=== PATIENT | female | born 1955 | race Caucasian/White ===

== ENCOUNTER 2020-02-07 01:13 | Inpatient (IN) | payer OTHER ==
[~2020-02-07] VITALS: Ht 152.4 cm; Wt 80.5 kg
[2020-02-07] MEDS ORDERED: NORVASC 2.5 MG2.5 M1 PO (01:39)
[2020-02-07] MEDS ORDERED: LIPITOR80 MG PO (01:40)
[2020-02-07] MEDS ORDERED: ABILIFY10 MG PO (01:40)
[2020-02-07] MEDS ORDERED: ASA81BEC PO (01:40)
[2020-02-07] MEDS ORDERED: LISINOPRIL40 MG PO (01:41)
[2020-02-07] MEDS ORDERED: CELEXA 10 MG TA10 M1 PO (01:41)
[2020-02-07] MEDS ORDERED: SYMBICORT160 MCG/4. INH (01:43)
[2020-02-07] MEDS ORDERED: CARVEDILOL12.5 MG PO (01:44)
[2020-02-07] MEDS ORDERED: VENTOLIN HFA INH8 GM INH (01:45)
[2020-02-07 03:30] VITALS: BP 154/87
--- NOTE | 2020-02-07 04:23 | NUR ---
PATIENT ARRIVED BY AMBULANCE STRETCHER TO [facility] UNIT AT 0310. PATIENT WAS A/O X2-3 AND FORGETFUL AND CONFUSED FROM ALL TRANSFERS FROM FACILITIES TODAY. PATIENT RECENTLY BEGAN RESIDING AT [facility] ASSISTED LIVING APARTMENT ON , 2 WEEKS AGO. PHI RECORDS RECEIVED FROM TRANSPORT AMBULANCE. PATIENT WAS BROUGHT TO ROOM AND VITAL SIGNS WERE OBTAINED. VSS AT 154/87, 97.7, 81P,18R, 02% 95 RA. PT IS BLACK FEMALE AGE 64. SHE IS AWARE THAT SHE IS IN THE HOSPITAL BUT CONFUSED ON WHICH ONE SHE IS IN. SHE DID ASK, "WHY DO THEY KEEP MOVING ME TO DIFFERENT PLACES?" WHEN ASKED IF SHE COULD TELL ME WHY SHE FELT SHE NEEDED TO COME TO THE HOSPITAL, SHE BEGAN TO SOB WITH NOSE RUNNING AND SOME DROOL. "SHE STATES, "I JUST DON'T KNOW! ALL I KNOW IS THAT I'M ALL ALONE! I DON'T HAVE ANY KIDS AND I'M BY MYSELF." SHE DID PROJECT THAT SHE HAS A SISTER THAT LIVES IN THE AREA THAT SHE WISHES TO CALL IN THE MORNING. SHE IS CONFUSED ABOUT WHERE SHE IS LIVING AND CAN'T RECALL THE NAME. WHEN ASKING HER ABOUT HER COMMENTS THAT OTHERS REPORTED SAYING THAT SHE FELT LIKE SHE WAS HAVING A NERVOUS BREAKDOWN AND THAT SHE WAS THINKING ABOUT KILLING HERSELF, SHE CRIED HARDER AND SAID SHE DOESN'T REMEMBER ANY OF THIS. PATIENT APPEARS VERY SAD, HOPELESS, SCARED, ANXIOUS, CONFUSED, LOST. SHE IS COOPERATIVE WITH CARES AND APPRECIATIVE. SHE ASKED FOR SOMETHING TO EAT AND SAID SHE HAD NOT EATEN FOR A LONG TIME. AFTER PHYSICAL ASSESSMENT PATIENT LEAD TO THE DINING ROOM WHERE SHE DID HAVE A BOWL OF CEREAL AND MILK. TRAZADONE 50MG PO GIVEN AND PATIENT WENT BACK TO BED AFTER EATING. PATIENT STATES SHE HAS NOT HAD A BM TODAY AND NO RECALL OF LAST ONE. [facility] DID NOT KNOW EITHER. PATIENT DENIES PAIN. HER SKIN IS INTACT WITH HEAVY CALLOUSING OF TOES AND HEELS BILATERALLY AND TOENAILS NEED TRIMMED. BOWEL SOUNDS ACTIVE IN ALL 4 QUADS. ABDOMEN SOFT. LUNGS CTA BILATERALLY WITH OCCASIONAL COARSENESS THAT CLEARS WITH COUGH. COVID-19 ASSESSMENT QUESTIONS AND ASSESSMENT OF PATIENT DONE IN [facility] PER THIS NURSE REQUEST AND PROTOCOL. SPOKE WITH DAMIEN MENARD AT [facility] REGARDING THIS. PATIENT DID PRESENT TO ER WITH C/O RUNNY NOSE AND COUGH BUT DOES NOT MEET THE CRITERIA FOR THE QUESTIONS AND HAS NOT RAN A FEVER AND NO BODY ACHES OR POSITIVE CONTACT WITH CONFIRMED CASES. PATIENT STANDS 5 FT TALL AND WEIGHS 174.2 LBS PER BED SCALES. SHE AMBULATES WITH STEADY GAIT WITH WALKER. HEART SOUNDS ARE REGULAR WITH BOUNDING RHYTHM. NO WOUNDS OR PRESSURE SORES NOTED. PATIENT DOES WEAR DISPOSABLE BRIEFS BUT IS CONTINENT OF BOWEL AND BLADDER PER REPORT. PATIENT DID VOID CLEAR YELLOW URINE ONCE SHE WAS HERE BEFORE SHE WENT TO BED. CONSENT FORMS WERE GONE OVER AND SIGNED BY PATIENT A VOLUNTARY ADMIT. NO DPOA AT THIS TIME EXCEPT A FINANCIAL POA ADVISOR ON CHART. FALL EDUCATION AND PATIENT BILL OF RIGHTS EDUCATION DONE. PATIENT CHANGED INTO [facility] GOWN WITHOUT STRINGS AND NONSLIP SOCKS ON FEET. INVENTORY OF ITEMS DONE AND PLACED IN LOCKER. SHE ONLY HAS EYEGLASSES AN AID FOR SEEING AND THEY ARE IN HER LOCKER AT THIS TIME BECAUSE SHE IS AFRAID OF LOSING HER BELONGINGS. PATIENT IS NOT HALLUCINATING AT THIS TIME BUT DID BY EARLIER REPORTS STATING THAT SHE SAW AND SPOKE TO HER THAT TOLD HER TO GO GET HELP. NO SI AT THIS TIME. BED IN LOW POSITION. WALKER AT BEDSIDE. PATIENT DIAGNOSIS ON ADMIT OF SI, DEPRESSION. SHE HAS HISTORY OF PSYCHOSIS AND ANXIETY. SHE HAS BEEN INPATIENT AT [facility] TWICE IN THE LAST MONTH. SHE RECENTLY GOT ESTABLISHED AT [facility] FOR MED MANAGEMENT. PATIENT ALSO HAS CONTINUED HISTORY OF AV HALLUCINATIONS. MEDICAL HISTORY INCLUDES, CURRENT CIGARETTE SMOKER, HTN, HLD, ASTHMA/COPD, DM2. PATIENT WAS EASILY CONSOLED AND 1:1 VERBALIZATION AND COMFORT GIVEN. PATIENT IS SLEEPING. NO COUGH NOTED SINCE STOPPED CRYING. BED IN LOW POSITION AND ROUTINE ROUNDING FOR SAFETY BEING DONE. CAN ASSESS WHEN SHE AWAKES, NEED FOR NICODERM PATCH IF SHE DESIRES. WILL CONTINUE TO MONITOR. ORDERS RECEIVED AND DR [facility] NOTIFIED OF ADMIT.
[2020-02-07 08:55] VITALS: BP 152/73
[2020-02-07 13:05] LABS: HEMOGLOBIN 12.1 gm/dL (12.0-15.0); MCH 29.5 pg (26.0-34.0); MCHC 32.8 g/dL (28.0-37.0); MCV 89.9 fL (80.0-100.0); RBC 4.11 mil/uL (4.20-5.00); RDW 17.4 % (10.5-14.5)
[2020-02-07 13:17] LABS: CALCIUM 10.4 mg/dL (8.5-10.1); CREATININE 0.8 mg/dL (0.6-1.0); POTASSIUM 3.8 mmol/L (3.5-5.1)
--- NOTE | 2020-02-07 14:01 | NUR ---
GEODON 20MG GIVEN FOR AGRESSIVE BEHAVIOR AND COMBATIVE WITH STAFF PER ORDER. PATIENT NOTED SWINGING ARM AT [facility] Onofre REC THERAPIST. CAMI WAS ABLE TO BLOCK THE SWING AND ONLY OBTAINED BLOW TO HER HAND. PATIENT ESCORTED TO SECLUSION BY DR KHANNA. PLASTIC MOLDER DID NOT WITTNES INCIDENT PRIOR TO THE SWING. ORDER FOR ONE ON ONE RECIEVED.
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
[2020-02-07 14:29] VITALS: BP 152/73
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
[2020-02-07 19:08] VITALS: BP 151/65
--- NOTE | 2020-02-07 23:31 | NUR ---
Assumed care on 02/07/20 @ 1900, patient noted to be in bed by 1999, awakened to voice and cooperated with assessment. HRRR, lungs fine crackles noted, abd normoactive x 4 q. afebrile @ 97.8F 95% SPO2. Took HS meds whole with water. Tremors noted to hands. Bed in low position, bed alarm set, will continue to monitor for patient safety. Continues to lie in bed with eyes closed and respirations even and unlabored.
[2020-02-08 00:49] VITALS: BP 151/65
[2020-02-08 09:22] VITALS: BP 113/74
--- NOTE | 2020-02-08 10:39 | NUR ---
02/07/20 LASHONDA spoke with Marilyn VALLADARES and Dr santoyo enacted it with an order. Pt was at [facility] and was discharge to [facility] ADRIANNA and BLAINE belives this pt needs LTC memory care. LASHONDA completed the intake assessment and TP.
--- NOTE | 2020-02-08 13:35 | NUR ---
complient with taking scheduled am medications with exception OF NICOTINE PATCH STATING "I DON'T NEED THAT" DURING AM ASSESSMENT IS NOTED TO HAVE ACTIVE BS X4-STATES HAD LAST BM "YESTERDAY I THINK" DENIES S/O PAIN AND DISCOMFORT WHEN QUUESTIONED. LUNG SOUNDS SLIGHTLY DIMINISHED 9IN BASES-BUT AFEBRILE-NO COUGH OR NASAL CONGESTION NOTED OR REPORTED. PT DENIES SOB,AMBULATORY WITH USE OF ROLLER WALKER-GAIT STEADY WITH USE OF ASSISITVE DEVICE. LATER IN SHIFT-APPROX 1100 REPORTED TO MD SHE WAS HAVING SEVERE LEFT SHOULDER PAIN-LIDODERM PATCH ALLPIED PER MD ORDER-VOLTERAN GEL APPLIED AT 1200 TO LEFT SIDE OF NECK AND UPPER SHOULDER. NO REDNESS,SWELLING ETC NOTED UPON EXAM, WHEN ASKED IF THIS HAD BEGAN AFTER PHYSICAL ALTERCATION WITH STAFF YESTERDAY STATES "NO I;'VE HAD IT FOR MONTHS" AT APPROX. 1245 IMMEDIATLY AFTER XRAY LEFT HER BED AND SAT DOWN IN HALLWAY-LOUDLY,DRAMATIC CRYING STATING IN SEVERE PAIN MUSCLES IN NECK "TIGHT" GODD CSM TO LEFT ARM,FINGERS TO LEFT HAND WARM,FULL ROM. WILL CONTINUE TO MONITOR
--- NOTE | 2020-02-08 14:46 | NUR ---
Spoke with admissions at [facility] and they are an RCF and will not accept this pt back. They feel they were mislead in the original admission and the DPOA is not forthright. SW asked if they would keep this pt beloingings until alternate placement is established. SW will send referrals as soon as there are a few days without behaviors.
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
--- NOTE | 2020-02-09 03:28 | NUR ---
Assumed care on 01/30/20 @ 1900, sitting on a couch in the day room socializing with peers and watching tv. A&Ox 2 oriented to person and time only. Confused and forgetful, however pleasant affect noted. c/o pain in L Shoulder and R eye. Slight puffiness noted to R eye, Tylenol 650 provided for pain to L shoulder and R eye. Diclofenac applied to shoulder when Lidocaine patch removed. Seen by neurologist @ 2100, new meds ordered to begin in the a.m. Cooperated with assessment, Hrrr, Lungs fine crackles auscultated, cough noted, lung sounds clear after cough. ABD sounds noted, reports bm today on 02/07. Incontinent of bladder, wears a brief. In bed asleep throughout the night as of this writing, bed in low position. Will continue to monitor q 12 minutes for patient safety.
[2020-02-09 05:16] VITALS: BP 118/63
--- NOTE | 2020-02-09 06:07 | NUR ---
slept 7.6 hours overnight
[2020-02-09 07:15] VITALS: BP 145/75
--- NOTE | 2020-02-09 15:14 | NUR ---
Sw met with pt and discussed her d/c plans. Pt is aware thet she " acted the fool " and cannot go backt o her NH. Pt is willign to try and live in another NH and is grateful for assistane . Did not ahve group today due to COVID 19 restricitons.
--- NOTE | 2020-02-09 15:36 | NUR ---
Maryellen sent referral to [facility]
[2020-02-09 19:25] VITALS: BP 157/73
--- NOTE | 2020-02-10 00:34 | NUR ---
Assumed care of patient this pm shift. Patient sitting in the mileu with other peers. Patient ambulates with a walker but requested to use a wheel chair as her back was hurting. Patients affect blunted. Patients memory is poor at this time. Patient states that her right eye is hurting. Patient given tylenol for the pain. Patient denies hi/si. Patients assessment shows course rhonchi bilaterally in the upper apices. RT called to give patient a breathing treatment. Patients bowel sounds active. S1 S2 heard with auscultation. Patient in bed sleeping at this time. We will continue to monitor.
[2020-02-10 07:11] VITALS: BP 148/75
--- NOTE | 2020-02-10 09:30 | NUR ---
POST January. CHARTING: PATIENT COMPLAINED OF RIGHT EYE PAIN YESTERDAY. MOBIC HELPS WITH DISCOMFORT AT TIMES - WAS CALM AND COOPERATIVE. NO AGITATION OR AGGRESSIVE BEHAVIOR. MEDICATION COMPLIANT. DENIES ANY S/I OR HALLUCINATIONS WHEN QUESTIONED - OBSERVED NO INTERNAL STIMULI - AMBULATES WITH WALKER.
--- NOTE | 2020-02-10 14:28 | NUR ---
LASHONDA did a check in with pt instead of group due to COVID-19 guidelines. Pt talked to LASHONDA about Lavon Lynen and his evelia COVID-19; it was on the news. She initially thought they were saying the mejía Amish. When LASHONDA informed her that he a few years ago, she responded with a surprise expression; she said she did not know he . She also mentioned she was in pain. LASHONDA provided this update to her nurse. LASHONDA team will continue to follow pt during her stay on this unit.
[2020-02-10 16:26] LABS: ABSOLUTE NEUTROPHILS 2.2 thou/uL (1.4-8.2); BASOPHILS 0.9 % (0.0-2.0); EOSINOPHILS 0.3 % (0.0-3.0); HEMATOCRIT 33.4 % (37.0-47.0); HEMOGLOBIN 11.1 gm/dL (12.0-15.0); LYMPHOCYTES 49.1 % (24.0-44.0); MCH 29.8 pg (26.0-34.0); MCHC 33.2 g/dL (28.0-37.0); MCV 89.7 fL (80.0-100.0); MONOCYTES 6.9 % (1.0-8.0); PLATELET COUNT 269 thou/uL (150-400); POLYS 42.8 % (36.0-66.0); RBC 3.72 mil/uL (4.20-5.00); RDW 17.2 % (10.5-14.5); WBC 5.1 thou/uL (4.0-11.0)
[2020-02-10 16:34] LABS: ANION GAP 8 mmol/L (7-16); BUN 18 mg/dL (7-18); CALCIUM 9.8 mg/dL (8.5-10.1); CHLORIDE 101 mmol/L (98-107); CO2 24 mmol/L (21-32); CREATININE 0.7 mg/dL (0.6-1.0); GLUCOSE 110 mg/dL (74-106); POTASSIUM 4.2 mmol/L (3.5-5.1); SODIUM 133 mmol/L (136-145)
[2020-02-10 16:44] LABS: ALBUMIN 3.2 g/dL (3.4-5.0); MAGNESIUM 1.6 mg/dL (1.8-2.4); SGOT 13 U/L (15-37); SGPT 5 U/L (30-65); TOTAL BILIRUBIN 0.5 mg/dL (<0.1-1.0); TOTAL PROTEIN 6.8 g/dL (6.4-8.2); TROPONIN-I <0.06 ng/mL (<0.06)
--- NOTE | 2020-02-10 18:42 | NUR ---
PATIENT HAS BEEN UP ON UNIT - STATES EYES HURT. HAS ASKED FOR MULTIPLE PAIN MEDICATIONS. GOOD APPETITE. LATER IN AFTERNOON FELT DIZZINESS - DR. VALENCIA ASSESSED AND PUT ORDERS IN EKG AND LABS STAT. THEY WERE DONE AND UNREMARKABLE. WAS CONCERNED WITH HER DIZZINESS. ALSO HAS BEEN ASKING FOR PAIN MEDICATIONS.
[2020-02-10 19:32] VITALS: BP 155/78
[2020-02-10 21:13] LABS: TSH 0.9 uIU/mL (0.358-3.740)
--- NOTE | 2020-02-10 21:30 | NUR ---
Assumed care on 02/10/20 @ 1900, sitting in mileu on the couch socializing with peers. Cooperaed with assessment and medicaiton. Denies SI, HI and Hallucinations. Denies depression and anxiety. Will continue to monitor for patient safety.
--- NOTE | 2020-02-10 23:59 | NUR ---
In bed eyes closed respirations even and unlabored. Prefers HOB @ 30% angle. Lodocain patch removed and Voltarin gel applied to L shoulder. Bed in low position, will continue to monitor q 12 minutes for patient safety.
[2020-02-11 03:06] VITALS: BP 155/78
[2020-02-11 08:00] VITALS: BP 150/71
--- NOTE | 2020-02-11 09:58 | EKG ---
[facility] [place] [address] ELECTROCARDIOGRAM REPORT Name: STEPHANY RIVERA Room #: 52[facility] ADM IN M.R.#: [id number] Admission: 02/07/20 Attend Phys: Fan Parikh DO Discharge: Date of : 53 Report #: [id number] THIS REPORT FOR: cc: NO FAMILY PHYSICIAN or PCP NO FAMILY PHYSICIAN or PCP Kwaku Tineo MD ~ THIS REPORT FOR: //name// [facility] Test Date: 2020-02-10 Test Time: 16:36:59 Pat Name: STEPHANY RIVERA Department: Room: [facility] A Gender: F Mailroom Personnel: Brent VIRAMONTES : 1955 Requested By: Maryanne Crawford Order Number: [id number] MD: Kwaku Tineo Measurements Intervals Vidal Rate: 69 P: 60 [place]: 180 QRS: 16 QRSD: 95 T: 67 QT: 387 QTc: 415 Interpretive Statements Sinus rhythm Nonspecific ST segment abnormalities No previous ECG available for comparison Electronically Signed On 02-11-2020 9:57:35 CDT by Kwaku Tineo [email or web address] <ELECTRONICALLY SIGNED> By: Kwaku Tineo MD 02/11/20 0957 D: [id number] Kwaku Tineo MD /OLU
--- NOTE | 2020-02-11 10:00 | EKG ---
[facility] [place] [address] ELECTROCARDIOGRAM REPORT Name: STEPHANY RIVERA Room #: 52[facility] ADM IN M.R.#: [id number] Admission: 02/07/20 Attend Phys: Fan Parikh DO Discharge: Date of : 53 Report #: [id number] THIS REPORT FOR: cc: NO FAMILY PHYSICIAN or PCP NO FAMILY PHYSICIAN or PCP Kwaku Tineo MD ~ THIS REPORT FOR: //name// [facility] Test Date: 2020-02-10 Test Time: 18:17:12 Pat Name: STEPHANY RIVERA Department: Room: [facility] A Gender: F Gin Feeder: Brent VIRAMONTES : 1955 Requested By: Maryanne Crawford Order Number: [id number] MD: Kwaku Tineo Measurements Intervals [place] Rate: 69 P: 57 IA: 183 QRS: 27 QRSD: 99 T: 67 QT: 394 QTc: 422 Interpretive Statements Sinus rhythm No previous ECG available for comparison Electronically Signed On 02-11-2020 9:58:54 CDT by Kwaku Tineo [email or web address] <ELECTRONICALLY SIGNED> By: Kwaku Tineo MD 02/11/20 0958 1817 16 MD OMAR Brooks
[2020-02-11 12:48] LABS: URINE BILIRUBIN NEGATIVE (Negative); URINE BLOOD NEGATIVE (Negative); URINE CLARITY CLEAR; URINE COLOR YELLOW; URINE GLUCOSE-RANDOM* NEGATIVE (Negative); URINE KETONES NEGATIVE (Negative); URINE LEUKOCYTES-REFLEX NEGATIVE (Negative); URINE NITRITE-REFLEX NEGATIVE (Negative); URINE PROTEIN (DIPSTICK) 2+ (Negative); URINE SPECIFIC GRAVITY >= 1.030 (1.005-1.035); URINE UROBILINOGEN 0.2 E.U./dl (0.2-1.0)
[2020-02-11 13:03] LABS: CASTS None Seen /LPF (None Seen); SQUAMOUS >10 Many /LPF (0-3)
[2020-02-11 13:04] LABS: CRYSTALS None Seen /LPF (None Seen); URINE RBC None Seen /HPF (0-2); URINE WBC-REFLEX 0-5 Rare /HPF (0-5)
--- NOTE | 2020-02-11 14:11 | NUR ---
ASSUMED CARE OF PATIENT AT 19:30 - OUT ON UNIT. SOCIAL WITH PEERS. DENIES ANY S/I OR H/I - STATES SHOULDER AND EYE PAIN MODERATELY BETTER. APPETITE GOOD - DID NOT PARTICIPATE IN MORNING GROUP - MANUVERS AROUND UNIT INDEPENDENTLY - ENCOURAGED TO USE HER WALKER AT ALL TIMES FOR BALANCE AND SAFETY. FORGETFUL- DID NOT REMEMBER STAFF HAD APPLIED LIDOCAINE AND QUESTIONED NOT RECEIVING MORNING MEDICATIONS.
[2020-02-11 19:35] VITALS: BP 151/76
[2020-02-11 22:52] VITALS: BP 151/76
--- NOTE | 2020-02-12 00:57 | NUR ---
PATIENT WAS UP IN DAYROOM TONIGHT SITTING IN WC WITH CHAIR ALARM ON AND IN PLACE. PATIENT HAS BEEN CALM AND COOPERATIVE AND DENIES PAIN. SHE IS FORGETFUL AND CONFUSED AT TIMES. FREQUENT REMINDERS TO USE HER WALKER OR WC WHEN TRANSFERRING. PATIENT HAS BEEN INDEPENDENT WITH BATHROOM CARES. PATIENT IS SLEEPING AT THIS TIME. BED IN LOW POSITION AND LOCKED AND BED ALARM IS ON. CONTINUING TO MONITOR PATIENT WITH ROUTINE ROUNDING FOR SAFETY ASSESSMENT. PT DENIES SI/HI/AVH.
[2020-02-12 02:06] LABS: GLYCOHEMOGLOBIN (HGB A1C) 5.9 % (4.8-5.6)
[2020-02-12 08:27] VITALS: BP 151/76
--- NOTE | 2020-02-12 12:50 | NUR ---
Maryellen followed up on referrals [facility] is looking into the chart more, [facility] Sw left a VM, sent new referral to [facility]. MARYELLEN completed the DA 124 C, a level II is not required with the dementia DX.
--- NOTE | 2020-02-12 13:59 | NUR ---
SW met with pt for 1:1 and she was preoccupied wiht her pain, Sw asked nursing to assist and then she was brought to bed. Will f/u later.
--- NOTE | 2020-02-12 15:38 | NUR ---
ALERT AND ORIENTED TO NAME ONLY. CONFUSED AT TIMES. GOOD APPTITE FOR MEALS. PATIENT REPORTS THAT HER BUTTOCKS HURTS REFUSED EXAM AT THIS TIME. AMBULATES WITH SLOW STEADY GAIT USING ROLLER WALKER. GOOD APPETITE FOR MEALS.
[2020-02-12 19:25] VITALS: BP 155/78
--- NOTE | 2020-02-12 23:39 | NUR ---
PROGRESS PT A/O X4 ABLE TO MAKE NEEDS KNOWN. ATTENTION SEEKING STATING "NOBODY GIVES ME MY MEDICINE THAT IS WHY MY RIGHT EYE HURTS SO MUCH". RIGHT EYE SLIGHTLY SWOLLEN PT RUBBING AND TOUCHING IT OFFERED ICE OR WARM PACK PT REFUSED. TYLENOL GIVEN FOR PAIN WITH EFFECT PT WENT TO BED AFTER HS MEDS. CONTINUE TO MONITOR AND RE-DIRECT FROM ATTENTION SEEKING BEHAVIOR NEEDED.
[2020-02-13 08:47] VITALS: BP 144/69
--- NOTE | 2020-02-13 09:58 | NUR ---
ASSUMED CARE AT 0700 THIS MORNING. PT. IS AWAKE, DRESSED AND ON THE UNIT FOR MEALS. SHE IS PLEASANT AND COOPERATIVE WITH HIS RN. SHE ANSWERED QUESTIONS APPROPRIATELY. SHE TOOK HER MORNING MEDICATIONS WITHOUT PROBLEMS NOTED. SHE WAS ON THE UNIT FOR GROUP THIS MORNING.
--- NOTE | 2020-02-13 12:23 | NUR ---
SW met with pt and discussed how she is moving to a NH and not an AL, she was dsiappointed and weepy but encouraged that her palcement may let her cook for fun in activities. Still pending placement
--- NOTE | 2020-02-13 15:14 | NUR ---
Sw sent referrals to [facility], [facility], and [facility].
--- NOTE | 2020-02-13 15:26 | NUR ---
[facility] is considering and [facility] declined this pt due to her aggressive behaviors.
--- NOTE | 2020-02-13 15:27 | NUR ---
SW did a check in with pt instead of group due to COVID-19 guidelines. Pt was in her bed asleep.
[2020-02-13 19:34] VITALS: BP 129/72
--- NOTE | 2020-02-14 04:04 | NUR ---
No concerns overnight. pt took meds with no problems. denies pain/SI. pt ambulates with steady gait with a wheelchair. no s/s of distress noted. will cont to monitor
[2020-02-14 09:03] VITALS: BP 161/76
--- NOTE | 2020-02-14 12:05 | NUR ---
Date of Admission: 02/07/20 Date of Activity Therapy Assessment: 02/10/20 Activity Goal: Anxiety/Depression management, impulse control Initial Goal: 2 Group activities/day Weekly progress towards goal: On track Group participation level: Moderate Behaviors observed: Patient participates in most groups, though she can be preoccupied with napping or housing concerns at times, affecting her level of engagement. Patient displays intermittent confusion in groups, but remains socially appropriate. She has not voiced depression since admit date. Plan: No change towards goal
--- NOTE | 2020-02-14 14:03 | NUR ---
Pt was seen in the dining room and was more interested in her tea than talking with the SW. There was no group due to COVID 19 restrictions
--- NOTE | 2020-02-14 14:58 | NUR ---
MARIO RN was contacted per Dr. Lora request. Gave the RN the pt room number and identification information. Informed her that the pat has been here since February 06. The patient was transferred to us from [facility]. At [facility] the patient had a CXR, see notes for details. Dr. Parikh ordered a CXR, please see notes for details. The [facility]IO RN stated she would get back with [facility].
--- NOTE | 2020-02-14 15:56 | NUR ---
PT REPORTING COUGH AND FEELING SOA THIS MORNING WITH ASSESSMENT. PT ENCOURAGED TO DEEP BREATH/COUGH. UNABLE TO CLEAR EXCRETIONS. PROVIDER NOTIFIED. PATIENT REPORTS PAIN MANAGED WITH MEDICATION. PT USING WHEELCHAIR TO SCOOT AROUND. NEEDS FREQUENT REMINDERS TO REMAIN SEATED, PT OFTEN ATTEMPTS TO WALK AROUND UNIT PUSHING WHEELCHAIR. FALL PRECAUTIONS IN PLACE. STOOL SAMPLE SENT THIS SHIFT. FUROSEMIDE GIVEN PER ORDERS POST CXR RESULTS. PT HAS LABS ORDERED FOR TOMORROW R/T CONTINUED MONITORING.
[2020-02-14 20:16] VITALS: BP 167/79
--- NOTE | 2020-02-15 02:11 | NUR ---
ASSUMED CARE FROM DAY SHIFT PT UP IN DAYROOM WITH PEERS , CALM COOPERATIVE. LOOSE NON-PROD COUGH NOTED. DENIES SOA. UP WITH WHEELCHAIR GAIT STEADY, AND SOA NOTED WITH ACTIVITY. PO MEDICATION TAKEN, HS SNACK EATEN BLOOD GLUCOSE STABLE. PT RESTING WELL THROUGHOUT FREQ CHECKS. WILL REPORT CHANGES AND ABNORMAL FINDINGS.
[2020-02-15 07:05] LABS: ABSOLUTE NEUTROPHILS 2.5 thou/uL (1.4-8.2); EOSINOPHILS 0.7 % (0.0-3.0); HEMATOCRIT 37.3 % (37.0-47.0); HEMOGLOBIN 12.3 gm/dL (12.0-15.0); LYMPHOCYTES 47.7 % (24.0-44.0); MCH 29.6 pg (26.0-34.0); MCHC 32.9 g/dL (28.0-37.0); MONOCYTES 5.1 % (1.0-8.0); PLATELET COUNT 250 thou/uL (150-400); POLYS 45.5 % (36.0-66.0); RBC 4.14 mil/uL (4.20-5.00); RDW 17.5 % (10.5-14.5); WBC 5.5 thou/uL (4.0-11.0)
[2020-02-15 07:11] LABS: CALCIUM 10.4 mg/dL (8.5-10.1); CREATININE 0.7 mg/dL (0.6-1.0); MAGNESIUM 2.1 mg/dL (1.8-2.4)
[2020-02-15 08:00] VITALS: BP 143/86
[2020-02-15 08:47] VITALS: BP 143/86
--- NOTE | 2020-02-15 08:53 | NUR ---
Pt wsa denied at [facility] - they are closed for admssions due to COVID 19.
--- NOTE | 2020-02-15 10:31 | NUR ---
SW sent referrals to [facility], [facility], [facility],and [facility]. [facility] is not taking anymore pt's due to COVID 19.
--- NOTE | 2020-02-15 10:55 | NUR ---
ASSUMED PT CARE REPORT RECEIVED FROM NURSE. PT IS AOX4. ON RA. VSS. PT COMPLAINS OF PAIN IN RIGHT UPPER BACK. LIDOCAINE PATCH APPLIED. AM MEDICINE GIVEN TO PT. FALL PRECAUTION IN PLACE. PT STAYS IN WHEELCHAIR FOR PACING IN HALLWAY. PT IS COOPERATIVE, DENIES N/V. ECHO ORDERED, PT ASSESSED FOR CHEST PAIN BY THIS NURSE. PT STATED THAT HER CHEST IS HURTING BETWEEN HER BREAST AT A LEVEL OF 9. DENBIES RADIATION. DR MCFADDEN NOTIFIED. MYLANTA ORDERED. PT LEFT FLOOR FOR ECHO TESTING AT 1050. WILL AWAIT WHEN SHE IS BACK TO GIVEN MYLANTA. WILL CONTINUE TO MONITOR PT
--- NOTE | 2020-02-15 11:47 | 2DMMODE ---
[facility] [address] [place] [address] 2 D/M-MODE ECHOCARDIOGRAM Name: STEPHANY RIVERA Room #: 52-A ADM IN M.R.#: [id number] Admission: 02/07/20 Attend Phys: Fan Parikh DO Discharge: Date of : 53 Report #: [id number] THIS REPORT FOR: cc: NO FAMILY PHYSICIAN or PCP NO FAMILY PHYSICIAN or PCP Heladio Da Silva MD [facility] ~ APPROVED REPORT Study performed: 02/15/2020 10:56:35 EXAM: Comprehensive 2D, Doppler, and color-flow Echocardiogram Patient Location: Echo lab Room #: [address] [place] [address] Status: routine BSA: 1.77 HR: 67 bpm BP: 143/86 mmHg Rhythm: NSR Other Information Study Quality: Good Indications CHF. Chest pain. HX: HTN, HLP, DM. 2D Dimensions RVDd: 39.58 mm IVSd: 13.00 (7-11mm) LVOT Diam: 19.83 (18-24mm) LVDd: 43.03 mm PWd: 13.00 (7-11mm) Ascending Ao: 32.75 (22-36mm) LVDs: 30.12 (25-40mm) Aortic Root: 31.65 mm Volumes Left Atrial Volume (Systole) Single Plane 4CH: 89.26 mL Single Plane 2CH: 81.12 mL LA ESV Index: 51.00 mL/m2 Aortic Valve AoV Peak Jasen.: 2.93 m/s AO Peak Gr.: 34.42 mmHg LVOT Max P.10 mmHg AO Mean Gr.: 20.46 mmHg AO V2 Mean: 2.15 m/s LVOT Max V: 1.01 m/s [facility] [place] [address] 2 D/M-MODE ECHOCARDIOGRAM Name: STEPHANY RIVERA Room #: [facility].#: [id number] Admission: 02/07/20 Attend Phys: Fan Parikh Discharge: Date of : 53 Report #: [id number] AO V2 VTI: 66.72 cm AUBRIE Vmax: 1.07 cm2 Mitral Valve E/A Ratio: 0.8 MV Decel. Time: 266.97 ms MV E Max Jasen.: 0.82 m/s MV A Jasen.: 1.05 m/s MV PHT: 77.42 ms IVRT: 129.18 ms Pulmonary Valve PV Peak Jasen.: 0.90 m/s PV Peak Gr.: 3.23 mmHg Pulmonary Vein P Vein S: 0.59 m/s P Vein A: 0.32 m/s P Vein D: 0.40 m/s P Vein A Dur.: 143.0 msec P Vein S/D Ratio: 1.48 Tricuspid Valve TR Peak Jasen.: 3.17 m/s RAP Estimate: 10.00 mmHg TR Peak Gr.: 40.07 mmHg PA Pressure: 50.00 mmHg Left Ventricle The left ventricle is normal size. There is normal LV segmental wall motion. Mild to moderate concentric left ventricular hypertrophy. Left ventricular systolic function is normal. LVEF is 60-65%. Mild diastolic dysfunction is present (impaired relaxation pattern). Right Ventricle The right ventricle is normal size. The right ventricular systolic function is normal. Atria Left atrium is severely dilated. Atrial septum is aneurysmal. Probable small PFO noted with color doppler. Right atrium is mildly dilated. Aortic Valve The aortic valve is normal in structure. Leaflets are moderately calcified. Trace aortic regurgitation. There is moderate valvular aortic stenosis. Calculated aortic valve area is 1.1 cm2 with maximum pressure gradient of 34 mmHg and mean pressure gradient of 20 mmHg. [facility] [address] [place] [address] 2 D/M-MODE ECHOCARDIOGRAM Name: STEPHANY RIVERA Room #: 523A-A [facility] IN [facility]#: [id number] Admission: 02/07/20 Attend Phys: Fan Parikh Discharge: Date of : 53 Report #: [id number] Mitral Valve Mitral valve leaflets are mildly thickened. Moderate mitral annular calcification. Trace mitral regurgitation. No evidence of mitral valve stenosis. Tricuspid Valve The tricuspid valve is normal in structure. Mild tricuspid regurgitation. Estimated PAP is 50-55mmHg. Pulmonic Valve The pulmonary valve is normal in structure. Trace pulmonic regurgitation. Great Vessels The aortic root is normal in size. The ascending aorta is normal in size. IVC is dilated and collapses <50% with inspiration. Pericardium There is no pericardial effusion. <Conclusion> The left ventricle is normal size. Mild to moderate concentric left ventricular hypertrophy. LVEF is 60-65%. Mild diastolic dysfunction is present (impaired relaxation pattern). The right ventricle is normal size. Left atrium is severely dilated. Atrial septum is aneurysmal. Probable small PFO noted with color doppler. Right atrium is mildly dilated. The aortic valve is normal in structure. Leaflets are moderately calcified. Trace aortic regurgitation. There is moderate valvular aortic stenosis. Calculated aortic valve area is 1.1 cm2 with maximum pressure gradient of 34 mmHg and mean pressure gradient of 20 mmHg. Mitral valve leaflets are mildly thickened. Moderate mitral annular calcification. Trace mitral regurgitation. Mild tricuspid regurgitation. Estimated PAP is 50-55mmHg. [address] [address] 2 D/M-MODE ECHOCARDIOGRAM Name: STEPHANY RIVERA Room #: 523A-A ADM IN [facility]#: [id number] Admission: 02/07/20 Attend Phys: Fan Parikh Discharge: Date of : 53 Report #: [id number] The aortic root is normal in size. There is no pericardial effusion. <ELECTRONICALLY SIGNED> By: Heladio Da Silva MD, [facility] 02/15/20 1146 1146 114 Heladio Da Silva MD, [facility] /INF
--- NOTE | 2020-02-15 14:21 | NUR ---
SW attempted to meet wiht pt but she was sleeping, will check on her later. No group due to covid 19 restrictions
--- NOTE | 2020-02-15 14:58 | NUR ---
Sw spoke with [facility] and they declined this pt. Later pt was accepted at [facility]. This is pending pt's DPOA signing the [place] paperwork, but d/c can be tomorrow. This was reported to Dr garcia
--- NOTE | 2020-02-15 17:16 | NUR ---
MYLANTA WAS GIVEN AFTER PT COME BACK FROM ECHO TESTING. PT NOW RATES HER CHEST PAIN AT A LEVEL OF 4 AND SAYS THAT PAIN HAS EASE MUCH AFTER MYLANTA WAS GIVEN. BP 119/77 HR 72 AT TIME OF COREG ADMINISTRATION AT 1700
[2020-02-15 20:00] VITALS: BP 138/64
[2020-02-15 21:00] VITALS: BP 138/64
--- NOTE | 2020-02-16 02:29 | NUR ---
Assumed care of patient this pm shift. Patient in good spirits sitting in the mileu with peers watching tv and talking. Patient denies hi/si. Patients appearance neat and tidy. Patient calm and cooperative. Patient takes medications whole. Patient ambulates with walker. Patient recieved tylenol prior to bed. Patients assessment shows clear breath sounds, active bowel sounds, and s1 s2 heard with auscultation. Patient did not state any goals or have any concerns at this time. We will continue to monitor.
[2020-02-16 08:32] VITALS: BP 145/87
--- NOTE | 2020-02-16 09:34 | NUR ---
Sw completed chart review and pt is ready to d/c. Discussed these plans with her yesterday with dr garcia present. Waiting for a tile picker time from [facility]. This has been reported to staff. Pt can d/c today if her DPOA signs and returns the paperwork in a timely manner
[2020-02-16 10:07] VITALS: BP 145/87
[2020-02-16] MEDS ORDERED: ALBUTEROL2.5 MG/31 INH (10:58)
[2020-02-16] MEDS ORDERED: LIPITOR80 MG PO (10:59)
[2020-02-16] MEDS ORDERED: CARVEDILOL25 MG PO (11:00)
[2020-02-16] MEDS ORDERED: ASPIR 8181 MG PO (11:01)
[2020-02-16] MEDS ORDERED: BENAZEPRIL HCL40 MG PO (11:01)
[2020-02-16] MEDS ORDERED: VOLTAREN GEL 1100 G1 TOP (11:02)
[2020-02-16] MEDS ORDERED: PRIMIDONE50 MG PO (11:02)
[2020-02-16] MEDS ORDERED: ABILIFY 5 MG TAB5 M1 PO (11:03)
[2020-02-16] MEDS ORDERED: EFFEXOR XR75 MG PO (11:03)
[2020-02-16] MEDS ORDERED: BENZTROPINE MES1 MG PO (11:04)
[2020-02-16] MEDS ORDERED: LASIX 20 MG TAB20 MG PO (11:05)
[2020-02-16] MEDS ORDERED: MAGNESIUM400 MG PO (11:06)
[2020-02-16] MEDS ORDERED: SENNA-TIME S T1 EACH PO (11:07)
[2020-02-16] MEDS ORDERED: PEPCID AC10 MG PO (11:07)
[2020-02-16] MEDS ORDERED: FOLIC ACID1 MG PO (11:07)
[2020-02-16] MEDS ORDERED: GLUCOPHAGE500 MG PO (11:07)
--- NOTE | 2020-02-16 11:56 | HC ---
[facility] [place] [address] CONSULTATION Name: STEPHANY RIVERA Room #: 523A-A ADM IN M.R.#: [id number] Admission: 02/07/20 Attend Phys: Fan Parikh, Discharge: Date of : 53 Report #: [id number] THIS REPORT FOR: cc: NO FAMILY PHYSICIAN or PCP NO FAMILY PHYSICIAN or PCP Joe Valiente MD ~ CC: Fan Parikh NO PCP DATE OF SERVICE: 02/08/2020 HISTORY OF PRESENT ILLNESS: This is a 64-year-old female patient who was seen by me yesterday. I have previously discussed the patient with her psychiatrist, Dr. Bryan. Neurology consultation is being requested to evaluate this patient for Parkinson's disease. She is a poor historian and is more concentrated on her back pain and getting the pain medications than anything else, but she initially said that this tremor is going on for several months, but then she indicated it may be longer than that. It does interfere with her daily activity. Her record indicates that she is on primidone. She cannot tell me whether she has been diagnosed with essential tremor or not. She does fall down some times. She is fully conscious when she falls down, but she does not confirm whether those falls are because of shuffling or not. She does indicate she is unstable on her feet. She does not tell me whether she had any imaging studies in the past or not. She does have a history of hypertension and diabetes. She has a history of tobacco abuse also. She is admitted with psychiatric issues of what looks like agitation. 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 She apparently has a history of bipolar disorder, major depressive episode, suicidal ideation. She does not think her memory is very good. She did not complain of any new eye, ENT, cardiac or respiratory symptoms. She does not have any new GI or symptoms. She does complain of multiple musculoskeletal symptoms, but denies any constitutional, dermatological, hematological, psychiatric or other symptom associated with present symptomatology. PAST MEDICAL HISTORY: Positive for this tremor which is present for a long period of time. FAMILY HISTORY: Unremarkable. SOCIAL HISTORY: She has a history of smoking. PHYSICAL EXAMINATION: Indicates she is alert. She is responsive. She can follow simple commands. Her speech looks intact. Cranial nerve examination 2-12 looks unremarkable. Neuromuscular examination as checked for strength, sensation, reflexes and tone is symmetrical, but reflexes do look diminished. [address] [address] CONSULTATION Name: STEPHANY RIVERA Room #: [facility] ADM IN M.R.#: [id number] Admission: 02/07/20 Attend Phys: Fan Parikh DO Discharge: Date of : 53 Report #: [id number] It is difficult to tell about the pulses. She does not appear to be in any respiratory difficulty. Cardiac examinations appear unremarkable. She is reasonably developed individual who does not have any dysmorphic features of face. Her hearing and vision look adequate. She does not have a thyroid mass or carotid bruit. Blood pressure is 145/75, pulse is 73, temperature is 98.7. LABORATORY DATA: Her white count is normal at 6.0. Blood sugar is somewhat elevated. Her calcium is also somewhat on the higher side at 10.4. She does have tremor. Tremor does look resting tremor, which improves. It is bilateral in the upper extremities. I cannot tell about automatic movements or much shuffling there. I do not think she has any pronounced rigidity either. 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 She has not had any imaging studies of the brain the best I can tell. I will suggest doing an MRI of the brain. I will suggest doing some further workup like repeating the calcium and magnesium and checking a thyroid function test and B12 because her memory does not look very good. She can be tried on Sinemet. The problem is going to be dopamine agonist affect can cause some times agitation and hallucination. I will order an MRI and the blood workup in this patient and discuss the patient with you and ask Dr. Mejias to follow up this patient with you. Thank you very much for this referral. <ELECTRONICALLY SIGNED> By: Joe Valiente MD 02/16/20 1156 1011 1056 Joe Valiente MD /nt
--- NOTE | 2020-02-16 12:15 | NUR ---
Pt got denied at [facility] because she does not have a COVID 19 test completed, and she is non symptomatic. [facility] declined this pt due to her aggressive behaviors. SW will send more referrals out today.
--- NOTE | 2020-02-16 12:29 | NUR ---
LASHONDA sent referral to [facility] [place], [facility].
--- NOTE | 2020-02-16 12:33 | NUR ---
Assumed care this morning 0700. Patietn calm and cooperative. Alert and oriented. Denies SI/HI. Ansewers questions appropriately. Patient excited to go home today. Patient ate breakfast and lunch without any problems. Taking medications whole with no swallowing issues. pleasant and converses with peers appropriately. Vitals are stable. Bowel sound audible. needs met, we will continue with the plan pof care.
--- NOTE | 2020-02-16 13:31 | NUR ---
Sw met with pt to discuss the change in her d/c plans. She understands that [facility] wanted COVID 19 tests done and is understanding that she has to stay on [facility] until placement is found. Pt is grateful that there is still hope to find her a new home. No group due to COVID 19 restrictions
--- NOTE | 2020-02-16 14:34 | NUR ---
Pt was accepted at [facility]. Dr garcia and SW spoke with admissions Moshe [phone] and confirmed this. they will pick her up at 4Pm. D/C orders and summary were faxed , packet updated. This was reported to nursing and Maryellen called Marilyn Richter to report the change.
--- NOTE | 2020-02-16 14:47 | NUR ---
MARYELLEN called and reported to Marilyn Richter that this pt was discharging to [facility]. Although she did not know this place she was angry it was on [facility]. Maryellen provided support and guidacne and attempted to reassure her that this was in the pt's best interest. Maryellen provided Marilyn Richter with an address and phone number and then called [facility] and reported that the DPOA was frustrated that she did not have control over where this pt was going.
--- NOTE | 2020-02-16 15:51 | NUR ---
Patient discaharge. Paper work ready and given to the patient. Wheeled to the ride by the nurse medical secretary teacher via wheelchair. Report called to facility twice but no one is picking the phone. Nurse has left two voice messages. Will keep trying and updating.
[2020-02-16 16:06] VITALS: BP 145/87
--- NOTE | 2020-02-16 16:42 | NUR ---
1615 Nurse contacted the facility again and no one picked. 1630 Nurse called again to give report but no one picked the phone again.
--- NOTE | 2020-02-16 21:24 | D ---
[facility] [place] [address] DISCHARGE SUMMARY Name: STEPHANY RIVERA Room #: 52-A [facility] IN M.R.#: [id number] Admission: 02/07/20 Attend Phys: Fan Parikh DO Discharge: 02/16/20 Date of : 53 Report #: [id number] THIS REPORT FOR: cc: NO FAMILY PHYSICIAN or PCP NO FAMILY PHYSICIAN or PCP Fan Parikh DO ~ THIS REPORT FOR: //name// CC: Fan Parikh NO PCP DATE OF SERVICE: 02/16/2020 INPATIENT PSYCHIATRIC DISCHARGE SUMMARY ATTENDING PHYSICIAN: Fan Parikh DO [employer] IMPREGNATING RANGE TENDER: Jermaine Lora MD DISCHARGE DIAGNOSES: Major neurocognitive disorder, unspecified, with behavioral disturbance, improved; bipolar 1 disorder by history. Medical comorbidities include essential tremor versus Parkinson's disease; gastroesophageal reflux disease; moderate aortic stenosis; diastolic left ventricular dysfunction; hypertension, stable; hyperlipidemia; diabetes mellitus, on metformin; history of tobacco use; gait impairment. DISCHARGE DIET: Diabetic 1800 calorie. ACTIVITY LEVEL: As tolerated. The patient is being discharged to [facility]. Psychiatric medical care should be performed by the receiving facility. The patient should have general Internal Medicine followup, Psychiatry followup, Neurology followup, and ideally pharmacovigilance scientist followup for her heart condition. DISCHARGE MEDICATIONS: Are as follows: Albuterol nebulizer 2.5 mg inhaled q. 6 p.r.n. shortness of breath, atorvastatin 80 mg p.o. at bedtime for hyperlipidemia, carvedilol 12.5 mg p.o. b.i.d. with meals, hold for systolic blood pressure less than 100, lisinopril 40 mg p.o. daily for hypertension, aspirin 81 mg p.o. daily for cardioprotection, diclofenac 2 g topical 4 times a day to left shoulder and arthritic joint, venlafaxine 75 mg p.o. daily for depression, aripiprazole 15 mg daily p.o. for psychosis. Nella I discharged her on [address] Stoddard noted after she was discharged recommending increasing the evening dose to 2 mg, keeping the day dose of 1 mg. This change is certainly elective, but I just mentioned it for discharge summary purposes. Furosemide 20 mg p.o. daily, magnesium oxide 400 mg p.o. b.i.d. for supplementation. Senna and docusate 2 tabs p.o. b.i.d. for bowel motility, hold [address] [address] DISCHARGE SUMMARY Name: STEPHANY RIVERA Room #: [facility].#: [id number] Admission: 02/07/20 Attend Phys: Fan Parikh DO Discharge: 02/16/20 Date of : 53 Report #: [id number] if diarrhea. Famotidine 20 mg p.o. b.i.d. for GERD, metformin 500 mg p.o. b.i.d. with meals, folic acid 1 mg p.o. daily for supplementation. REASON FOR ADMISSION: Back on February 06 is as follows: The patient was accepted from [facility] and also had been hospitalized at [facility] in December, [facility] in November. Apparently, she presented to the ER with medical complaints, one of which she was suicidal. Tremor worsened. 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 HOSPITAL COURSE: The patient was admitted to Geriatric Psychiatry Unit. Efforts were made to stabilize her mood, improve her clarity of thought. Her Abilify was increased from 10 to 15 mg. We initially did not have DPOA documentation, but turns out her sister Marilyn Richter is her DPOA. Apparently, the patient had been placed in facility called [facility], which could not provide memory care, so was not a particularly supportive environment at myself and her DPOA felt that was the main cause of her decline. Electrocardiogram was done earlier in admission. QTC was 422, MT interval 183 at rate 69 and sinus rhythm. During the admission, the patient had some episodic periods of agitation. She did require one seclusion, several injections; however, the last 4-5 days for free of any significant behavioral problems. The patient at this point unfortunately noticed to have neurodegenerative disorder and will require 24-hour supervision and assistance. The patient was not suicidal or homicidal on the day of discharge. PHYSICAL EXAMINATION: VITAL SIGNS: On the day of discharge, temperature 36.8, pulse 70, respirations 18, BP 145/87, pulse ox 98%. MUSCULOSKELETAL: Essentially using a walker to ambulate. Wearing glasses. MENTAL STATUS EXAMINATION: This is a well-developed, fairly obese black female, appearing stated age. Attention limited. Concentration limited. Speech is normal rate. Thought process linear and goal directed. Thought content focused on discharge. Denied SI or HI. Denied auditory, visual, or tactile hallucinations. Memory impaired. Insight limited. Judgment limited. Fund of knowledge below average. Of several notes, the patient did have Neurology consultation, was admitted. It was unclear if she had Parkinson's disease. One neurologist recommended a dopamine transporter scan outpatient. She was started on primidone and then later Cogentin. There was some subjective improvement in her tremor, but the patient frequently denied it was better. She had a bilateral upper extremity tremor at rest, but disappeared with movement. Also echocardiogram was done later in the admission for reports of chest pain. There were a few findings of note that will require ongoing followup, namely the patient had ejection [facility] [address] [place] [address] DISCHARGE SUMMARY Name: STEPHANY RIVERA Room #: 523A-A [facility] IN M.R.#: [id number] Admission: 02/07/20 Attend Phys: Fan Parikh, Discharge: 02/16/20 Date of : 53 Report #: [id number] fraction of 60-65%, mild to moderate concentric left ventricular hypertrophy, mild diastolic dysfunction is present, impaired relaxation. Left atrium is severely dilated, atrial septum is aneurysmal, probable small PFO noted. Right atrium is mildly dilated, aortic valve is normal in structure, trace aortic regurgitation. There is a moderate valvular aortic stenosis. Calculated aortic valve area is 1.1 cm2 with a gradient of 34 mmHg and a mean pressure of 20 mmHg. Also, there was mild pulmonary hypertension noted with PAP estimated at 50-55 mmHg with mild tricuspid regurg. Dr. Lora felt cardiology consultation could be deferred to outpatient. Prognosis for this patient is guarded. Also, it should note she had a urine culture at this admission which showed 20,000 CFUs with gram-negative rods, E. coli, 60,000 CFUs with normal genitourinary sarika, likely not a UTI because of multiple sarika, I believe. The patient was treated from to 27th with cefuroxime 250 mg b.i.d. She will remain a FULL CODE at nursing facility. <ELECTRONICALLY SIGNED> By: Fan Parikh DO 02/16/20 [id number] Fan Parikh DO /nt
== END 2020-02-16 15:30 | DRG 884 ==
LOC: SBH
PROVIDERS: Hospitalist; Internal Medicine; Nurse Practitioner; ADMIT Psychiatry & Neurology Psychiatry
DX: F01.51 Vascular dementia, unspecified severity, with behavioral disturbance (principal); J98.11 Atelectasis; N39.0 Urinary tract infection, site not specified; E66.9 Obesity, unspecified; Z71.3 Dietary counseling and surveillance; G20 Parkinson's disease; E11.9 Type 2 diabetes mellitus without complications; Z87.891 Personal history of nicotine dependence; F31.9 Bipolar disorder, unspecified; Z91.5 Personal history of self-harm; K21.9 Gastro-esophageal reflux disease without esophagitis; I35.0 Nonrheumatic aortic (valve) stenosis; I10 Essential (primary) hypertension; E78.5 Hyperlipidemia, unspecified; Z79.84 Long term (current) use of oral hypoglycemic drugs; Z68.34 Body mass index [BMI] 34.0-34.9, adult; E53.8 Deficiency of other specified B group vitamins; B96.20 Unspecified Escherichia coli [E. coli] as the cause of diseases classified elsewhere; R07.89 Other chest pain; Z71.6 Tobacco abuse counseling; G47.00 Insomnia, unspecified; F41.8 Other specified anxiety disorders
CPT/HCPCS: 10880